=== PATIENT | female | born 2000 ===

== ENCOUNTER 2022-05-25 04:46 | Outpatient (CLI) | payer OTHER ==
[~2022-05-25] VITALS: Ht 157.5 cm; Wt 56.7 kg
[2022-05-25] MEDS ORDERED: PRENATAL CAPLE1 EAC1 PO (04:50)
== END 2022-05-25 12:19 | disposition home or self-care (01) ==
LOC: OBS/DEL 04:46
PROVIDERS: ATTEND Obstetrics & Gynecology
DX: O47.03 False labor before 37 completed weeks of gestation, third trimester (principal); Z3A.35 35 weeks gestation of pregnancy

== ENCOUNTER 2022-06-03 22:17 | Inpatient (IN) | payer OTHER ==
[~2022-06-03] VITALS: Ht 157.5 cm; Wt 58.5 kg
[~2022-06-03 22:17] MED LIST: PRENATAL CAPLE1 EAC1 PO
[2022-06-04] MEDS ORDERED: VALTREX1000 MG PO (03:23)
== END 2022-06-07 13:42 | disposition home or self-care (01) | DRG 831 ==
LOC: OBS/DEL 22:17 → LDR 22:42 → OBS/DEL 23:13 → LDR 06-04 03:12 → OB/GYN 06-06 11:28
PROVIDERS: ADMIT Obstetrics & Gynecology; ATTEND Obstetrics & Gynecology
PROC: 4A1HXCZ Monitoring of Products of Conception, Cardiac Rate, External Approach (ICD-10-PCS; principal; 2022-06-04)
PROC: BY4FZZZ Ultrasonography of Third Trimester, Single Fetus (ICD-10-PCS; 2022-06-04)
DX: O47.03 False labor before 37 completed weeks of gestation, third trimester (principal); U07.1 COVID-19; O98.513 Other viral diseases complicating pregnancy, third trimester; Z3A.37 37 weeks gestation of pregnancy

== ENCOUNTER 2022-06-09 02:29 | Inpatient (IN) | payer OTHER ==
[~2022-06-09] VITALS: Ht 157.5 cm; Wt 58.5 kg
[~2022-06-09 02:29] MED LIST changes: +VALTREX1000 MG PO
== END 2022-06-11 10:56 | disposition home or self-care (01) | DRG 807 ==
LOC: OB/GYN 02:29 → LDR 02:29 → OB/GYN 10:08
PROVIDERS: ADMIT Obstetrics & Gynecology; ATTEND Obstetrics & Gynecology
PROC: 10E0XZZ Delivery of Products of Conception, External Approach (ICD-10-PCS; principal; 2022-06-09)
PROC: 0UQG7ZZ Repair Vagina, Via Natural or Artificial Opening (ICD-10-PCS; 2022-06-09)
PROC: 4A1HXCZ Monitoring of Products of Conception, Cardiac Rate, External Approach (ICD-10-PCS; 2022-06-09)
DX: O71.4 Obstetric high vaginal laceration alone (principal); Z37.0 Single live birth; Z3A.37 37 weeks gestation of pregnancy; Z20.822 Contact with and (suspected) exposure to COVID-19